=== PATIENT | male | born 2000 | race Two or more races ===

== ENCOUNTER 2025-06-26 14:47 | Emergency (ER) | payer OTHER ==
[~2025-06-26] VITALS: Ht 152.4 cm; Wt 61.7 kg
[2025-06-26] MEDS ORDERED: 0.9 % SODIUM CHLORIDE 1,000 ML IV ONE (17:15)
[2025-06-26] MEDS ORDERED: ONDANSETRON HCL 2 MG/ML VIAL IV ONE (17:30)
[2025-06-26] MEDS ORDERED: FAMOtidine 10 MG/ML (4ML VIAL) IV PUSH ONE (17:30)
[2025-06-26] MEDS ORDERED: KETOROLAC TROMETHAMINE 30 MG VIAL IU ONE (17:30)
[2025-06-26] MEDS ORDERED: KETOROLAC TROMETHAMINE 30 MG VIAL ONE (18:11)
[2025-06-26] MEDS ORDERED: ONDANSETRON HCL 2 MG/ML VIAL ONE (18:11)
[2025-06-26] MEDS ORDERED: FAMOTIDINE/PF 20 MG/2 ML VIAL ONE (18:12)
[2025-06-26 18:34] LABS: BASO % 0.5 % (0.1-1.2); EOS # 0.06 (0.04-0.54); EOS % 0.6 % (0.7-7.0); LYMPH # 1.91 (1.18-3.74); LYMPH % 17.6 % (19.3-53.1); MEAN PLATELET VOLUME 10.30 fl (9.4-12.4); MONO # 0.49 (0.24-0.82); MONO % 4.5 % (4.7-12.5); NEUT # 8.32 (1.56-6.13); NEUT % 76.5 % (34.0-71.1); RED CELL DISTRIBUTION WIDTH 12.4 % (11.6-14.4)
[2025-06-26 18:55] LABS: BUN CREA RATIO 14.0 (7.0-25.0); CREATININE SERUM 0.56 mg/dL (0.70-1.30); GFR 175.01; GLUCOSE FASTING 82.0 mg/dL (65-100); GLUCOSE RANDOM 82.0 mg/dL (65-100); OSMOLALITY SERUM 281.0 MOSM/KG (275-295)
[2025-06-26] MEDS ORDERED: BUTALB-ACETAMI1 EAC2 PO (21:01)
== END 2025-06-26 22:09 | disposition home or self-care (01) ==
LOC: ER 14:47
PROVIDERS: Behavior Technician
DX: G43.809 Other migraine, not intractable, without status migrainosus (principal); Z88.8 Allergy status to other drugs, medicaments and biological substances